=== PATIENT | male | born 1985 | race Hispanic/Latino ===

== ENCOUNTER 2018-11-20 07:16 | Emergency (ER) | payer OTHER ==
[2018-11-20 07:19] VITALS: TEMP 98; O2SAT 100; BMI 23.1
[2018-11-20] MEDS ORDERED: Sodium Chloride 0.9% 1,000 ML IV STA (07:52)
[2018-11-20 08:14] LABS: BASO % 0.6 % (0.0-2.0); EOS # 0.1 K/uL (0.0-0.7); HEMOGLOBIN 12.8 g/dL (12.0-18.0); LYMPH # 2.2 K/uL (1.0-4.3); LYMPH % 33.8 % (20.0-40.0); MEAN CELL VOLUME 93.3 fl (80.0-94.0); MEAN CORPUSCULAR HEMOGLOBIN 31.9 pg (27.0-31.0); MEAN CORPUSCULAR HGB CONC 34.2 g/dL (33.0-37.0); MEAN PLATELET VOLUME 8.5 fl (7.2-11.7); MONO # 0.5 K/uL (0.0-0.8); MONO % 7.2 % (0.0-10.0); NEUT # 3.7 K/uL (1.8-7.0); NEUT % 56.4 % (50.0-75.0); NRBC % 0.1 % (0.0-0.0); RBC 4.01 Mil/uL (4.40-5.90); RED CELL DISTRIBUTION WIDTH 13.1 % (11.5-14.5); WHITE BLOOD COUNT 6.6 K/uL (4.8-10.8)
--- NOTE | 2018-11-20 08:14 | ED PDOC ---
HPI: Male Pain Time Seen by Provider: 11/20/18 07:20 Chief Complaint (Nursing): Male Genitourinary Chief Complaint (Provider): Rectal Bleed History Per: Patient History/Exam Limitations: no limitations Onset/Duration Of Symptoms: Hrs Current Symptoms Are (Timing): Still Present Associated Symptoms: denies: Fever, Vomiting, Back Pain Additional Complaint(s): 33 year old male presents to the ED for an evaluation of rectal bleeding in the morning. Patient reports there was bright red blood in the toilet. He states he had a colonoscopy on November 18 because he has a family history of colon cancer and he had a pulp removed that seemed benign. Patient has minimal abdominal pain last night that is non-present currently. PMD: non [facility] provider Past Medical History Reviewed: Historical Data, Nursing Documentation, Vital Signs Vital Signs: Last Vital Signs Temp 98.0 F 11/20/18 07:18 Pulse 117 H 11/20/18 07:18 Resp 20 11/20/18 07:18 BP 133/94 H 11/20/18 07:18 Pulse Ox 100 11/20/18 07:18 - Medical History PMH: No Chronic Diseases - Surgical History Surgical History: No Surg Hx - Family History Family History: States: Other Other Family History: colon cancer - Social History Current smoker - smoking cessation education provided: No Alcohol: None Drugs: Denies - Allergies Allergies/Adverse Reactions: Allergies Allergy/AdvReac Type Severity Reaction Status Date / Time No Known Allergies Allergy Verified 11/20/18 07:28 Review of Systems ROS Statement: Except As Marked, All Systems Reviewed And Found Negative Constitutional: Negative for: Fever, Chills Gastrointestinal: Positive for: Rectal Pain. Negative for: Vomiting, Abdominal Pain Musculoskeletal: Negative for: Back Pain Physical Exam - Reviewed Nursing Documentation Reviewed: Yes Vital Signs Reviewed: Yes - Physical Exam Appears: Positive for: Non-toxic, No Acute Distress Head Exam: Positive for: ATRAUMATIC, NORMAL INSPECTION, NORMOCEPHALIC Skin: Positive for: Normal Color, Warm, Dry. Negative for: Rash Eye Exam: Positive for: EOMI, Normal appearance, PERRL Neck: Positive for: Normal, Painless ROM, Supple Cardiovascular/Chest: Positive for: Tachycardia Respiratory: Positive for: Normal Breath Sounds. Negative for: Decreased Breath Sounds, Respiratory Distress Gastrointestinal/Abdominal: Positive for: Soft. Negative for: Tenderness Male Genital Exam: Positive for: bleeding (Scant bright red blood on the rectum ), other ([place]) Back: Positive for: Normal Inspection. Negative for: L CVA Tenderness, R CVA Tenderness Extremity: Positive for: Normal ROM. Negative for: Tenderness, Pedal Edema, Deformity Neurologic/Psych: Positive for: Alert, Oriented (x3). Negative for: Motor/Sensory Deficits - Laboratory Results Result Diagrams: 11/20/18 08:09 11/20/18 08:09 - ECG O2 Sat by Pulse Oximetry: 100 (RA) Pulse Ox Interpretation: Normal Medical Decision Making Medical Decision Making: Time: 0757 Impression: rectal bleed s/p colonoscopy Plan: BBK ABO/RH Type BBK Type and screen CMP CBC w/ Differential PTT Prothrombin time [COAG] Normal Saline 1000 mls/hr Abdomen (flat plate) [RAD] Urinalysis Reevaluation [address] Michael who agrees with blood work and requests abdominal x-ray. 1011 Abdomen (flat plate) [RAD] FINDINGS: BOWEL: No obstruction BONES: Normal. OTHER FINDINGS: None. IMPRESSION: No active disease. 11:00 On reexamination, abdomen remains nontender. No episodes of hematochezia in ED. 11:[address] Michael, agrees with discharge home, to call his cell ([phone]) when he gets back to [place]. Copy of labs and AXR report given to patient. Scribe Attestation: Documented by Kim Rachel, acting as a scribe for Emmy Thorne MD. Provider Scribe Attestation: All medical record entries made by the Scribe were at my direction and personally dictated by me. I have reviewed the chart and agree that the record accurately reflects my personal performance of the history, physical exam, medical decision making, and the department course for this patient. I have also personally directed, reviewed, and agree with the discharge instructions and disposition. Disposition - Clinical Impression Clinical Impression: Rectal bleeding - Disposition Referrals: Non [facility] Provider, [Primary Care Provider] - Disposition: Routine/Home Disposition Time: 11:29 Condition: STABLE Additional Instructions: CALL DR. MICHAEL @ [phone] WHEN YOU GET BACK TO [place]. Instructions: Gastrointestinal Bleeding Forms: [facility] (Greek)
[2018-11-20 08:19] LABS: INR 1.1; PROTHROMBIN TIME 12.2 Seconds (9.8-13.1)
[2018-11-20 08:22] LABS: PARTIAL THROMBOPLASTIN TIME 26.6 Seconds (25.6-37.1)
[2018-11-20 08:23] LABS: ALB/GLOB RATIO 1.5 (1.0-2.1); ALBUMIN 3.9 g/dL (3.5-5.0); ALT/SGPT 26 U/L (21-72); AST/SGOT 19 U/L (17-59); BLOOD UREA NITROGEN 15 mg/dl (9-20); CALCIUM 9.1 mg/dL (8.4-10.2); GFR NON-AFRICAN AMERICAN > 60
--- NOTE | 2018-11-20 10:14 | RAD ---
Date of service: 11/20/2018 HISTORY: LGIB, s/p polyp removal COMPARISON: None available. FINDINGS: BOWEL: No obstruction BONES: Normal. OTHER FINDINGS: None. IMPRESSION: No active disease.
[2018-11-20 11:26] VITALS: BP 112/68; PULSE 82; RESP 19
== END 2018-11-20 11:58 | disposition home or self-care (01) ==
LOC: H.ER 07:16 → SUPCPDRO 07:16 → H.ER 11:58
DX: K62.5 Hemorrhage of anus and rectum (principal)
CPT/HCPCS: 74018; 80053; 85025; 85610; 85730; 86850; 86900; 99283; G0328; J7030